=== PATIENT | male | born 1985 | race Caucasian/White ===

== ENCOUNTER 2017-10-20 06:52 | Day surgery (SDC) | payer BC ==
[~2017-10-20 06:52] MED LIST: Midazolam 1 MG/ML 2 ML SDV ONE; fentaNYL 100 MCG/2 ML SDV ONE
[2017-10-20] MEDS ORDERED: Midazolam 1 MG/ML 2 ML SDV IV ONE ×3 (06:53→08:43)
[2017-10-20] MEDS ORDERED: fentaNYL 100 MCG/2 ML SDV IV ONE ×3 (06:53→08:42)
[2017-10-20] MEDS ORDERED: Sodium Chloride 0.9% 10 ML Syringe FLUSH PRN ×2 (07:00→07:30)
[2017-10-20] MEDS ORDERED: Dextrose 5%-0.45% NaCl 1,000 ML IV SCH ×2 (07:00→07:30)
--- NOTE | 2017-10-20 09:53 | OR ---
DATE: 10/20/2017 PROCEDURES: Esophagogastroduodenoscopy, narrow-band imaging, multiple pinch biopsies, and brush biopsy. INSTRUMENT USED: GIF-Q180 Olympus video panendoscope. PREMEDICATIONS: No oral topical anesthesia used. Fentanyl 100 mcg intravenous, Versed 2 mg intravenous. The procedure was done under pulse oximetry, BP recording, and cardiac rehabilitation specialist. INDICATION: The patient with persistent heartburn; dysphagia as well as abdominal pain, unexplained; and not responsive to medical measures, on PPI. DESCRIPTION OF PROCEDURE: Esophagogastroduodenoscopy is performed for detection of any active erosive lesions. Dumont esophagus and/or malignancy also under consideration. H. pylori status to be determined. Esophageal dilatations if indicated, endoscopic hemostasis therapy if needed. The scope was passed with ease. Adequate visualization of the esophagus was made from proximal to distal areas. No upper esophageal lesions identified. No distal esophageal stricture. No uphill or downhill esophageal varices. No Anjali-Ochoa tear. No evidence of erosive esophagitis by [facility] criteria. No esophageal polyp or tumor mass identified. Z-line was seen at around 40 cm distal to the oral verge, configuration consistent with grade 1 by ZAP classification. No proximal gastric varices noted. Gastric fundus examination by retroflexion showed no polypoid lesions. Multiple benign-appearing gastric ulcers were noted in the mid body. NBI views were obtained. Photographs were taken. Multiple pinch biopsies, 6 in number, were taken from the largest of ulcer and sent for histopathology. Brainard biopsy was done for cytology. No vascular ectasia or polyp noted. Duodenal bulb showed no ulcer. Visualized second part of the duodenum was unremarkable. Multiple pinch biopsies were taken from the gastric and proximal body and sent for PyloriTek test for H. pylori and histopathology. No bleeding was noted from any of the visualized areas at the completion of examination. Photographs were taken of the duodenal bulb, gastric antrum, fundus, distal esophagus, and body showing ulcers. IMPRESSION: Gastric body ulcers. The patient tolerated the procedure well. [facility] /[id number]
== END 2017-10-20 11:00 | disposition home or self-care (01) ==
LOC: DL.ENDO 06:52
PROVIDERS: ATTEND Internal Medicine Gastroenterology
DX: K25.9 Gastric ulcer, unspecified as acute or chronic, without hemorrhage or perforation (principal); K21.9 Gastro-esophageal reflux disease without esophagitis
CPT/HCPCS: 43239; 87077; J2250; J3010; J7042